=== PATIENT | female | born 1985 | race Caucasian/White ===

== ENCOUNTER 2017-04-06 21:41 | Emergency (ER) | payer OTHER ==
[~2017-04-06] VITALS: Ht 177.8 cm; Wt 86.0 kg
[2017-04-06 21:47] VITALS: BP 132/80; PULSE 121; RESP 18; TEMP 98.2; O2SAT 98
--- NOTE | 2017-04-06 22:36 | PD ---
HPI Chief Complaint: Abdominal Pain Time Seen by Provider: 22:28 Travel History International Travel<30 days: No Contact w/Intl Traveler<30days: No Traveled to known affect area: No History of Present Illness HPI The patient is a 31 year old female who presents to the [facility] emergency department with a history of lower extremity edema that has been gradually worsening throughout the last 3 days. She has had mild anemia in the past, however not to the severity. She reports that she has been in a car over the last 15 hours driving to the area on vacation. She denies having any calf pain or erythema. 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 She denies having any nausea, vomiting, or diarrhea. She denies having any chest pain, chest pressure, or shortness of breath. She reports over the last week having left upper quadrant abdominal pain. She reports that it is a dull aching sensation that is been constant. She reports that she believes that it is related to her spleen being swollen. The patient reports that she last moved her bowels within the last week. She denies having any blood in her stool or black or tarry stools. On review of systems otherwise, the patient denies having any known recent fevers, cough, congestion, neck pain, or neurologic symptoms. The patient reports a positive finding on review of systems of urinary frequency and urgency with little urine output with each urination. She denies having any dysuria. She reports that this is been ongoing for the last month. LMP: March 07, 2017. She reports having a history of irregular menstrual cycles. She denies any possibility of being . [facility] Past Medical History Narrative Medical The patient's past medical history is significant for cirrhosis of undetermined cause diagnosed in 2006, ITP diagnosed in 2004 with a platelet count that usually ranges from 23,000-30,000. History of kidney stones, last in 2009. She also has a history of GI bleed in the past with esophageal varices status post banding last 5 months ago. Blood Disorders: Yes (ITP) Diminished Hearing: No Kidney Stones: Yes Medical other: Yes (cryptogentic liver failure) Tetanus Vaccination: < 5 Years Influenza Vaccination: No ?: Not LMP: 03/07/2017 Past Surgical History Narrative Surgical The patient's past surgical history is significant for tonsil and adenoidectomy , esophageal varices banding, kidney stone removal. Tonsillectomy: Yes (T&A) Other Surgery: Yes (espoageal varies banding, kidney stone removal) Social History Alcohol Use: No Tobacco Use: Yes Substance Use: No Allergies-Medications (Allergen,Severity, Reaction): Coded Allergies: acetaminophen (Verified Allergy, Severe, 04/06/17) due to liver problems aspirin (Verified Allergy, Severe, 04/06/17) bleeding disorder Reported Meds & Prescriptions Reported Meds & Active Scripts Active Aldactone (Spironolactone) 25 Mg Tab 25 Mg PO DAILY Lasix (Furosemide) 20 Mg Tab 20 Mg PO DAILY Review of Systems Except as stated in HPI: all other systems reviewed are Neg General / Constitutional: No: Fever Eyes: No: Visual changes HENT: No: Headaches Cardiovascular: Positive: Edema, No: Chest Pain or Discomfort Respiratory: No: Shortness of Breath Gastrointestinal: Positive: Abdominal Pain, No: Nausea, Vomiting, Diarrhea, Hematemesis, Hematochezia Genitourinary: No: Dysuria Musculoskeletal: No: Pain Skin: No Rash Neurologic: No: Weakness, Focal Abnormalities, Change in Mentation, Slurred Speech, Sensory Disturbance Psychiatric: No: Depression Endocrine: No: Polydipsia Hematologic/Lymphatic: No: Easy Bruising Physical Exam Narrative General: The patient is a well-developed well-nourished female in no acute distress. Head and Neck exam: Head is normocephalic atraumatic. Eyes: EOMI, pupils are equal round and reactive to light. Nose: Midline septum with pink mucous membranes Mouth: Dentition unremarkable. Moist mucus membranes. Posterior oropharynx is not erythematous. No tonsillar hypertrophy. Uvula midline. Airway patent. Neck: No palpable lymphadenopathy. No nuchal rigidity. No thyromegaly. Cardiovascular: Sinus tachycardia in the low 100 without murmurs, gallops, or rubs. No pulse deficit to the extremities on simultaneous auscultation and palpation of her radial artery. Lungs: Clear to auscultation bilaterally. No wheezes, rhonchi, or rales. Abdomen: Soft, with reported tenderness on palpation over the right upper quadrant and left upper quadrant of the abdomen, no tenderness on palpation of the midepigastric area or lower quadrants of the abdomen. No guarding, rebound, or rigidity. Negative Alvarado sign. No tenderness on palpation of McBurney's point. Extremities: No clubbing or cyanosis. The patient has 1+ edema bilateral lower extremities. 2+ pulses in all 4 extremities. No calf tenderness on palpation. Back: No costovertebral angle tenderness to palpation. Neurologic Exam: Grossly nonfocal Skin Exam: No rash noted. Intact skin that is warm and dry. Data Data Last Documented VS Vital Signs Date Time Temp Pulse Resp B/P (MAP) Pulse Ox O2 Delivery O2 Flow Rate FiO2 04/06/17 22:46 15 98 Room Air 04/06/17 21:47 98.2 121 132/80 (97) Orders Orders Electrocardiogram (04/06/17 22:34) Complete Blood Count With Diff (04/06/17 22:34) Comprehensive Metabolic Panel (04/06/17 22:34) B-Type Natriuretic Peptide (04/06/17 22:34) Prothrombin Time / Inr (Pt) (04/06/17 22:34) Act Partial Throm Time (Ptt) (04/06/17 22:34) Lipase (04/06/17 22:34) Urinalysis - C+S If Indicated (04/06/17 22:34) Magnesium (Mg) (04/06/17 22:34) Thyroid Stimulating Hormone (04/06/17 22:34) Chest, Single Ap (04/06/17 22:34) Iv Access Insert/Monitor (04/06/17 22:34) Ecg Monitoring (04/06/17 22:34) Oximetry (04/06/17 22:34) Ed Urine Pregnancytest Poc (04/06/17 22:34) Drug Screen, Random Urine (04/06/17 22:34) Alcohol (Ethanol) (04/06/17 22:34) Us Leg Venous Doppler Bilat (04/06/17 22:38) Ct Abd/Pel W Iv Contrast(Rout) (04/06/17 23:03) Iohexol 350 Inj (Omnipaque 350 Inj) (04/07/17 01:06) Ed Discharge Order (04/07/17 01:47) Labs Laboratory Tests Test 04/06/17 22:40 White Blood Count 1.8 TH/MM3 Red Blood Count 3.21 MIL/MM3 Hemoglobin 10.5 GM/DL Hematocrit 29.0 % Mean Corpuscular Volume 90.2 FL Mean Corpuscular Hemoglobin 32.7 PG Mean Corpuscular Hemoglobin Concent 36.3 % Red Cell Distribution Width 16.7 % Platelet Count 32 TH/MM3 Mean Platelet Volume 8.4 FL Neutrophils (%) (Auto) 59.2 % Lymphocytes (%) (Auto) 29.1 % Monocytes (%) (Auto) 8.5 % Eosinophils (%) (Auto) 3.0 % Basophils (%) (Auto) 0.2 % Neutrophils # (Auto) 1.1 TH/MM3 Lymphocytes # (Auto) 0.5 TH/MM3 Monocytes # (Auto) 0.2 TH/MM3 Eosinophils # (Auto) 0.1 TH/MM3 Basophils # (Auto) 0.0 TH/MM3 CBC Comment AUTO DIFF Differential Total Cells Counted 100 Neutrophils % (Manual) 59 % Band Neutrophils % 10 % Lymphocytes % 25 % Monocytes % 2 % Eosinophils % 4 % Neutrophils # (Manual) 1.2 TH/MM3 Differential Comment FINAL DIFF MANUAL Platelet Estimate LOW Platelet Morphology Comment NORMAL Prothrombin Time 13.1 SEC Prothromb Time International Ratio 1.3 RATIO Activated Partial Thromboplast Time 29.1 SEC Blood Urea Nitrogen 15 MG/DL Creatinine 0.58 MG/DL Random Glucose 86 MG/DL Total Protein 6.0 GM/DL Albumin 3.2 GM/DL Calcium Level 8.2 MG/DL Magnesium Level 1.7 MG/DL Alkaline Phosphatase 104 U/L Aspartate Amino Transf (AST/SGOT) 36 U/L Alanine Aminotransferase (ALT/SGPT) 39 U/L Total Bilirubin 1.0 MG/DL Sodium Level 143 MEQ/L Potassium Level 3.6 MEQ/L Chloride Level 110 MEQ/L Carbon Dioxide Level 27.0 MEQ/L Anion Gap 6 MEQ/L Estimat Glomerular Filtration Rate 121 ML/MIN B-Type Natriuretic Peptide 39 PG/ML Lipase 89 U/L Thyroid Stimulating Hormone 3rd Gen 1.210 uIU/ML Ethyl Alcohol Level LESS THAN 3 MG/DL MDM Medical Decision Making Medical Screen Exam Complete: Yes Emergency Medical Condition: Yes Medical Record Reviewed: Yes Interpretation(s) Last Impressions Abdomen/Pelvis CT 04/06/17 1349 Signed Impressions: Service Date/Time: Friday, April 07, 2017 00:44 - CONCLUSION: 1. Cirrhotic liver with evidence for severe portal hypertension including a very prominent recanalized periumbilical vein, large splenorenal collaterals and moderate esophageal varices. 2. No ascites or focal drainable fluid collections in the abdomen. 3. Splenomegaly with spleen measuring up to 22 cm in length. Devan Haywood MD Lower Extremity Ultrasound 04/06/[id number] Signed Impressions: Service Date/Time: Thursday, April 06, 2017 23:07 - CONCLUSION: 1. No sonographic evidence for lower extremity DVT. Devan Haywood MD Chest X-Ray 04/06/[id number] Signed Impressions: Service Date/Time: Thursday, April 06, 2017 22:52 - CONCLUSION: Cardiomegaly. No acute cardiopulmonary disease. Kush Felix MD Differential Diagnosis Dependent edema from sitting in a car for prolonged period of time with her legs low, versus DVT, versus ascites, versus hypoalbuminemia, versus hypothyroid , versus renal failure Narrative Course During the course of the patient's emergency department visit, the patient's history, examination, and differential diagnosis were reviewed with the patient. The patient was placed on a software requirements engineer with oximetry and frequent blood pressure monitoring. The patient had IV access obtained and blood work sent for analysis. Chest x-ray was ordered, bilateral lower extremity ultrasounds were ordered to rule out DVT. The patient's laboratory studies were reviewed and remarkable for a white count of 1.8, hemoglobin 10.5, platelets 32 which is at the patient's baseline given her prior history of thrombocytopenia, neutrophils 59.2, monocytes 8.5, CMP is remarkable for chloride of 110, calcium 8.2, total protein 6, albumin 3.2, lipase 89, TSH 1.21, BNP is 39, PT 13.1, INR 1.3, PTT 29.1, alcohol level less than Radiology studies were reviewed and remarkable for a chest x-ray that shows no acute cardiopulmonary disease, cardiomegaly noted, an ultrasound of bilateral lower extremities that showed no evidence of DVT, CT scan of the abdomen and pelvis showed no evidence of significant ascites, cirrhotic liver, esophageal varices that are moderate, splenomegaly. The patient on further questioning does report that she is on Lasix and spironolactone, however she forgot to bring the prescription with her. Patient will be given a short course that she plans to return back home in 2 days. She is also instructed to elevate her legs frequently, increase the protein in her diet for her hypoalbuminemia. The patient is resting comfortably and feels better, is alert and in no distress. The patient's results and examination findings were discussed with the patient. The repeat examination is unremarkable and benign. The history, exam, diagnostic testing, and current condition do not suggest any significant pathology to warrant further testing, continued ED treatment, admission, or surgical evaluation at this point. The vital signs have been stable. The patient does not have uncontrollable pain, intractable vomiting, or other significant symptoms. The patient's condition is stable and appropriate for discharge. The patient will pursue further outpatient evaluation with a primary care physician or other designated or consulting physician as indicated in the discharge instructions. The patient expressed understanding and was agreeable with this plan. Diagnosis Primary Impression: Leg edema Additional Impression: Splenomegaly Referrals: Primary Care Physician 3 days Patient Instructions: Cirrhosis (ED), General Instructions, Leg Edema (ED) Med/Other Pt SpecificInfo: Prescription(s) given Scripts Spironolactone (Aldactone) 25 Mg Tab 25 MG PO DAILY, #4 TAB 0 Refills Prov: Karin Valladares MD 04/07/17 Furosemide (Lasix) 20 Mg Tab 20 MG PO DAILY, #4 TAB 0 Refills Prov: Karin Valladares MD 04/07/17 Disposition: 01 DISCHARGE HOME Condition: Stable Karin Valladares MD Apr 06, 2017 22:36
[2017-04-06 22:46] VITALS: RESP 15; O2SAT 98
[2017-04-06 22:57] LABS: AUTOMATED NEUTROPHIL # 1.1 TH/MM3 (1.8-7.7); BASOPHIL % 0.2 % (0.0-2.0); EOSINOPHIL # 0.1 TH/MM3 (0-0.4); HEMOGLOBIN 10.5 GM/DL (11.6-15.3); LYMPH % 29.1 % (9.0-44.0); LYMPHOCYTE # 0.5 TH/MM3 (1.0-4.8); MEAN CELL VOLUME 90.2 FL (80.0-100.0); MEAN CORPUSCULAR HEMOGLOBIN 32.7 PG (27.0-34.0); MEAN PLATELET VOLUME 8.4 FL (7.0-11.0); MONO % 8.5 % (0.0-8.0); MONOCYTE # 0.2 TH/MM3 (0-0.9); NEUT % 59.2 % (16.0-70.0); PLATELET COUNT 32 TH/MM3 (150-450); RED BLOOD COUNT 3.21 MIL/MM3 (4.00-5.30); RED CELL DISTRIBUTION WIDTH 16.7 % (11.6-17.2); WHITE BLOOD COUNT 1.8 TH/MM3 (4.0-11.0)
--- NOTE | 2017-04-06 22:57 | RADRPT ---
EXAM DATE/TIME: 04/06/2017 22:52 [facility] COMPARISON: No previous studies available for comparison. INDICATIONS : Cough. MEDICAL HISTORY : Cirrhosis. SURGICAL HISTORY : None. ENCOUNTER: Initial ACUITY: 1 day PAIN SCORE: 0/10 LOCATION: Bilateral chest FINDINGS: The cardiac silhouette is enlarged in transverse diameter. The lungs are free of acute parenchymal op acity. No effusions are identified. Osseous structures are intact. CONCLUSION: Cardiomegaly. No acute cardiopulmonary disease. Kush Felix MD on April 06, 2017 at 22:56 Board Certified Radiologist. This report was verified electronically.
[2017-04-06 22:58] LABS: MEAN CORPUSCULAR HGB CONC 36.3 % (32.0-36.0)
[2017-04-06 23:00] LABS: INTERNATIONAL NORMALIZED RATIO 1.3 RATIO; PROTHROMBIN TIME - PATIENT 13.1 SEC (9.8-11.6)
[2017-04-06 23:15] LABS: ALBUMIN 3.2 GM/DL (3.4-5.0); AST (GOT) 36 U/L (15-37); BLOOD UREA NITROGEN 15 MG/DL (7-18); CALCIUM 8.2 MG/DL (8.5-10.1); CHLORIDE 110 MEQ/L (98-107); CREATININE 0.58 MG/DL (0.50-1.00); GLOMERULAR FILTRATION RATE 121 ML/MIN (>89); GLUCOSE,RANDOM 86 MG/DL (74-106); MAGNESIUM 1.7 MG/DL (1.5-2.5); SODIUM (NA) 143 MEQ/L (136-145)
[2017-04-06 23:16] LABS: ALT (GPT) 39 U/L (10-53)
[2017-04-06 23:26] LABS: ALKALINE PHOSPHATASE 104 U/L (45-117)
--- NOTE | 2017-04-06 23:45 | RADRPT ---
EXAM DATE/TIME: 04/06/2017 23:07 [facility] COMPARISON: No previous studies available for comparison. INDICATIONS : Bilateral leg swelling. MEDICAL HISTORY : Kidney stones. Tobacco use. Blood disorders. Esophageal varicies. SURGICAL HISTORY : Tonsillectomy. Adenoidectomy. Kidney stone removal. ENCOUNTER: Initial ACUITY: 4 - 6 days PAIN SCORE: 4/10 LOCATION: Bilateral legs. TECHNIQUE: Venous ultrasound of the left and right leg was performed from the inguinal ligament to the proximal calf. Real-time, color Doppler and spectral tracing, compression and augmentation techniques were us ed. FINDINGS: RIGHT LEG: There is normal compressibility of the deep venous system from the inguinal region to the proximal ca lf. No echogenic clot is seen in the lumen of the common femoral, femoral, popliteal, and posterior tibial veins. There is a normal response of the venous system to proximal and distal augmentation an d respiration. LEFT LEG: There is normal compressibility of the deep venous system from the inguinal region to the proximal ca lf. No echogenic clot is seen in the lumen of the common femoral, femoral, popliteal, and posterior tibial veins. There is a normal response of the venous system to proximal and distal augmentation an d respiration. CONCLUSION: 1. No sonographic evidence for lower extremity DVT. Devan Haywood MD on April 06, 2017 at 23:43 Board Certified Radiologist. This report was verified electronically.
--- NOTE | 2017-04-07 01:01 | RADRPT ---
EXAM DATE/TIME: 04/07/2017 00:44 [facility] COMPARISON: No previous studies available for comparison. INDICATIONS : Abdomen distention IV CONTRAST: 100 cc Omnipaque 350 (iohexol) IV ORAL CONTRAST: No oral contrast ingested. RADIATION DOSE: 8.27 CTDIvol (mGy) MEDICAL HISTORY : Cryptogenetic liver failure, ITP. SURGICAL HISTORY : None. ENCOUNTER: Initial ACUITY: 1 day PAIN SCALE: 5/10 LOCATION: Bilateral abdomen. TECHNIQUE: Volumetric scanning of the abdomen and pelvis was performed. Using automated exposure control and ad justment of the mA and/or kV according to patient size, radiation dose was kept as low as reasonably achievable to obtain optimal diagnostic quality images. DICOM format image data is available electro nically for review and comparison. FINDINGS: LOWER LUNGS: The visualized lower lungs are clear. LIVER: Cirrhotic appearing liver without gross focal mass. Gallbladder is unremarkable by CT. There is very prominent recanalization of the periumbilical vein. There are also large splenorenal collaterals and moderate esophageal varices. SPLEEN: Enlarged measuring 22 cm in length. PANCREAS: Within normal limits. KIDNEYS: Normal in size and shape. There is no mass, stone or hydronephrosis. ADRENAL GLANDS: Within normal limits. VASCULAR: There is no aortic aneurysm. BOWEL/MESENTERY: The stomach, small bowel, and colon demonstrate no acute abnormality. There is no free intraperitone al air or fluid. ABDOMINAL WALL: Within normal limits. RETROPERITONEUM: There is no lymphadenopathy. BLADDER: No wall thickening or mass. REPRODUCTIVE: Within normal limits. INGUINAL: There is no lymphadenopathy or hernia. MUSCULOSKELETAL: Within normal limits for patient age. CONCLUSION: 1. Cirrhotic liver with evidence for severe portal hypertension including a very prominent recanalize d periumbilical vein, large splenorenal collaterals and moderate esophageal varices. 2. No ascites or focal drainable fluid collections in the abdomen. 3. Splenomegaly with spleen measuring up to 22 cm in length. Devan Haywood MD on April 07, 2017 at 0:56 Board Certified Radiologist. This report was verified electronically.
[2017-04-07] MEDS ORDERED: IOHEXOL 350 MG/ML 10 ML VIAL (for RAD DIAG) IVCONTRAST ONE (01:06)
[2017-04-07 01:27] LABS: BANDS 10 % (0-6); LYMPHOCYTES 25 % (9-44); MONOCYTES 2 % (0-8); NEUTROPHIL # MANUAL DIFF 1.2 TH/MM3 (1.8-7.7); POLYS (SEG NEUTROPHILS) 59 % (16-70)
[2017-04-07] MEDS ORDERED: SPIR25 PO (01:44)
[2017-04-07] MEDS ORDERED: FURO1TAB62 PO (01:44)
== END 2017-04-07 02:00 | disposition home or self-care (01) ==
LOC: NEPC 21:41
DX: R60.0 Localized edema (principal); R16.1 Splenomegaly, not elsewhere classified; K74.60 Unspecified cirrhosis of liver; E88.09 Other disorders of plasma-protein metabolism, not elsewhere classified; I51.7 Cardiomegaly; D69.3 Immune thrombocytopenic purpura; I85.00 Esophageal varices without bleeding; K72.90 Hepatic failure, unspecified without coma; Z72.0 Tobacco use
CPT/HCPCS: 71045; 74177; 80053; 80307; 83690; 83735; 83880; 84443; 84703; 85007; 85027; 85610; 85730; 93970; 99285; Q9967